=== PATIENT | female | born 1985 | race Caucasian/White ===

== ENCOUNTER 2019-10-04 13:21 | Inpatient (IN) ==
[2019-10-04] MEDS ORDERED: OXYTOCIN 30 UNITS/500 ML BAG IV PRN ×3 (14:57→19:56)
[2019-10-04] MEDS: LACTATED RINGER'S 1,000 ML IV PRN ×2 (15:14→16:12)
[2019-10-04] MEDS ORDERED: ePHEDrine sulfate 50 MG/ML AMP ONE (15:18)
[2019-10-04] MEDS ORDERED: BUPIVACAINE 0.25% 30 ML VIAL ONE (15:18)
[2019-10-04] MEDS ORDERED: fentaNYL 2MCG/ML ROPIV 1.25MG/ML 100 ML BAG EPI ONE (15:19)
[2019-10-04] MEDS ORDERED: fentaNYL citrate 100 MCG/2 ML VIAL ONE (15:19)
[2019-10-04 15:22] LABS: Hematocrit (blood only) 40.6 % (37-47); Hemoglobin 13.3 g/dL (12.0-16.0); Mean Corpuscular Hemoglobin 29.7 pg (25-34); Mean Corpuscular Volume 90.6 fL (80-100); Mean Platelet Volume 12.5 fL (7.4-10.4); Platelet Count 218 K/uL (130-400); RDW Coefficient of Variation 14.4 % (11.5-14.5); RDW Standard Deviation 47.1 fL (36.4-46.3); Red Blood Count 4.48 M/uL (4.2-5.4); White Blood Count 11.62 K/uL (4.8-10.8)
[2019-10-04 15:33] LABS: Mean Corpuscular Hgb Conc 32.8 g/dL (32-36)
--- NOTE | 2019-10-04 16:10 | Anesthesiology Consultation ---
Date of Service October 04, 2019 Assessment & Plan (1) Encounter for pre-operative examination: History Height/Weight Height: 5 ft 7 in Weight: 87.543 kg Allergies Allergy/AdvReac Type Severity Reaction Status Date / Time No Known Allergies Allergy Unverified 03/13/19 22:41 Medications Home Medications Medication Instructions Recorded Confirmed Last Taken vit-iron fum-folic ac 1 tab PO DAILY 10/04/19 10/04/19 10/03/19 10:00 [ Vitamin] Active Medications Generic Name Dose Route Start Last Admin Trade Name Freq PRN Reason Stop Dose Admin Lactated Ringer's 1,000 mls @ 125 mls/hr 10/04/19 14:57 10/04/19 15:14 Lr IV 10/06/19 14:56 999 mls/hr .Q8H PRN Administration L&D Protocol Protocol Past Medical History Medical History delivery indicated due to breech presentation (~02/18/07) Rheumatoid arthritis (~05/04/10) Past Surgical History Surgical History Hx successful (vaginal after ), currently Social History Smoking Status: Never smoker Hx Alcohol Use: No Hx Substance Use: No Physical Exam Vital Signs Last Vital Signs Temp 36.7 C 10/04/19 13:39 Pulse 66 10/04/19 15:54 Resp 20 10/04/19 13:39 BP 115/75 10/04/19 15:54 Testing Laboratory Results 10/04/19 15:10
[2019-10-04] MEDS ORDERED: ePHEDrine sulfate 50 MG/ML AMP IV PRN (16:59)
[2019-10-04] MEDS ORDERED: NALOXONE HCL 0.4 MG/1 ML VIAL/CARP IV PRN (16:59)
[2019-10-04] MEDS ORDERED: fentaNYL 2MCG/ML ROPIV 1.25MG/ML 100 ML BAG EPI PRN (16:59)
[2019-10-04] MEDS ORDERED: DiphenhydrAMINE HCL 50 MG/ML VIAL IV PRN (16:59)
[2019-10-04] MEDS ORDERED: NALOXONE HCL 1 MG in SODIUM CHLORIDE 0.9% 1000ML 1,000 ML IV PRN (16:59)
[2019-10-04] MEDS ORDERED: ONDANSETRON INJ 2 MG/ML 2 ML VIAL IV PRN (16:59)
[2019-10-04] MEDS ORDERED: METHYLERGONOVINE MALEATE 0.2 MG/ML AMP ONE (19:51)
[2019-10-04] MEDS ORDERED: OXYCODONE/ACETAMINOPHEN 5mg/325mg TAB PO PRN (19:56)
[2019-10-04] MEDS ORDERED: SUPERCREAM 0.870% 15 GM JAR EXT PRN (19:56)
[2019-10-04] MEDS ORDERED: bisacodyL 10 MG SUPP PR PRN (19:56)
[2019-10-04] MEDS ORDERED: BENZOCAINE 20% AER SPR 82.5 GM CAN EXT PRN (19:56)
[2019-10-04] MEDS ORDERED: HYDROCORTISONE ACETATE 25 MG SUPP PR PRN (19:56)
[2019-10-04] MEDS ORDERED: miSOPROStoL 200 MCG TAB PR ONE (19:56)
[2019-10-04] MEDS ORDERED: DIPHTHERIA/TETANUS/PERTUSSIS 0.5 ML SYR/VIAL IM ONE (19:56)
[2019-10-04] MEDS ORDERED: ACETAMINOPHEN W/CODEINE #3 1 TAB PO PRN (19:56)
[2019-10-04] MEDS ORDERED: ACETAMINOPHEN 325 MG TAB PO PRN (19:56)
[2019-10-04] MEDS ORDERED: METHYLERGONOVINE MALEATE 0.2 MG/ML AMP IM ONE (19:56)
[2019-10-04] MEDS: DOCUSATE SODIUM 100 MG CAP PO SCH (21:34)
--- NOTE | 2019-10-04 23:50 | Delivery Summary ---
DATE OF OPERATION: 10/04/2019 She was admitted in active labor at term. She is a 5, para 5, B positive, group B strep negative. She was having sporadic contractions at home. When she was admitted, she was 7-8 cm, head was about a -1, membranes intact. She requested epidural. She received epidural. Then we augmented her with IV Pitocin, ruptured her membranes at about 9 cm. Then she pushed the baby down. Once the baby's head came out, retracted, it was obviously a large baby. When I felt around the neck, there was a nuchal cord. I was able to reduce nuchal cord over the neck intact and then we tried to deliver the baby. We had an anterior shoulder dystocia. We immediately went to flexion of the thighs towards the chest, we used this maneuver first, then we used suprapubic pressure to dislodge the anterior shoulder, continued to exert a steady safe amount of traction. This did not work. I reached for the posterior shoulder. The 's face was looking towards maternal right thigh. I was able to get under the axilla and basically in a circular fashion I pulled the shoulder from about 6 o'clock to about 9 o'clock and as I did this, it started to come down. I went back to the anterior shoulder, tried to reduce that. It still did not reduce. Went back to the axilla, then rotated it even more to about 10 o'clock and then at this point both shoulders dislodged and the infant was born. was limp at . I stripped the cord, clamped, and handed off to the nurses. It resuscitated quite readily with oxygen and had a heart rate of over 100. Took cord blood. Then with IV Pitocin running, I removed the placenta intact. Inspection revealed a laceration of the right labia minora. We infiltrated with local and sewed it with a running 3-0 chromic. She had a history of hemorrhage with previous delivery, so in addition to the Pitocin we used IM Methergine and 800 mcg of rectal Cytotec. Following this, hemostasis was good. The time from the delivery of the head to the delivery of the body was 4 minutes. ESTIMATED BLOOD LOSS: 100 mL. Apgars deferred to the nurses. I attest to the content of the Intraoperative Record and any orders documented therein. Any exception s are noted below.
[2019-10-05] MEDS: IBUPROFEN 600 MG TAB PO PRN ×4 (02:12→19:22)
[2019-10-05 06:06] LABS: Hemoglobin 13.1 g/dL (12.0-16.0); Mean Corpuscular Hemoglobin 29.9 pg (25-34); Mean Corpuscular Hgb Conc 33.6 g/dL (32-36); Mean Platelet Volume 12.3 fL (7.4-10.4); Platelet Count 200 K/uL (130-400); RDW Coefficient of Variation 14.1 % (11.5-14.5); RDW Standard Deviation 45.6 fL (36.4-46.3); Red Blood Count 4.38 M/uL (4.2-5.4); White Blood Count 18.14 K/uL (4.8-10.8)
[2019-10-05] MEDS: PRENATAL VITAMIN 1 TAB PO SCH (08:41)
[2019-10-05] MEDS: DOCUSATE SODIUM 100 MG CAP PO SCH ×2 (08:41→20:34)
--- NOTE | 2019-10-05 10:46 | Obstetrical Progress Note ---
Date of Service October 05, 2019 Assessment & Plan Admission and Anticipated Discharge Date Admission Date: October 04, 2019 Physical Exam Physical Exam: abdomen soft and non tender no calf tenderness ambulating well vaginal bleeding scant hgb 13.1 Results & Data ([place]) Vital Signs (Past 12 Hours) Vital Signs Temp Pulse Resp BP Pulse Ox 10/05/19 07:17 37.1 C 64 18 122/74 96 10/05/19 02:24 36.7 C 88 18 130/72
[2019-10-05] MEDS ORDERED: ONDANSETRON INJ 2 MG/ML 2 ML VIAL IV PRN (13:39)
[2019-10-05] MEDS ORDERED: bisacodyL 5 MG TABEC PO SCH (20:00)
[2019-10-06] MEDS: IBUPROFEN 600 MG TAB PO PRN ×4 (00:20→16:31)
[2019-10-06 05:49] LABS: Hematocrit (blood only) 36.4 % (37-47); Hemoglobin 12.1 g/dL (12.0-16.0)
[2019-10-06] MEDS: DOCUSATE SODIUM 100 MG CAP PO SCH (07:32)
[2019-10-06] MEDS: PRENATAL VITAMIN 1 TAB PO SCH (07:32)
[2019-10-06 07:39] LABS: Basophils # (auto) 0.07 K/uL (0-0.2); Basophils % (auto) 0.6 %; Eosinophils # (auto) 0.34 K/uL (0-0.5); Eosinophils % (auto) 2.7 %; Immature Granulocytes # (auto) 0.05 K/uL (0.00-0.02); Immature Granulocytes % (auto) 0.4 %; Lymphocytes % (auto) 28.8 %; Mean Corpuscular Hemoglobin 28.8 pg (25-34); Monocytes # (auto) 1.01 K/uL (0.11-0.59); Monocytes % (auto) 8.1 %; Neutrophils # (auto) 7.44 K/uL (1.4-6.5); Neutrophils % (auto) 59.4 %; Platelet Count 206 K/uL (130-400); RDW Coefficient of Variation 14.5 % (11.5-14.5); RDW Standard Deviation 48.3 fL (36.4-46.3); White Blood Count 12.51 K/uL (4.8-10.8)
--- NOTE | 2019-10-06 08:57 | Obstetrical Progress Note ---
Date of Service October 06, 2019 Assessment & Plan Admission and Anticipated Discharge Date Admission Date: October 04, 2019 Subjective Patient is seen and examined. She feels well, no complaints other than hip and pubic bone pain Able to walk but pain increases Ambulating without dizziness Voiding without difficulty Tolerating regular diet with out N&V Bleeding is minimal No fever/ chills/ CP/ SOB/ N&V/ Leg pain Breast feeding without problems Vital Signs Temp Pulse Pulse Resp BP Pulse Ox 10/06/19 07:35 36.7 C 53 L 16 125/81 98 10/06/19 00:00 37.5 C 55 L 18 114/76 10/05/19 19:45 36.5 C 58 L 18 111/71 10/05/19 16:18 36.8 C 54 L 16 111/72 96 Lab Results 10/04/19 10/05/19 10/06/19 Range/Units 15:10 05:41 05:33 WBC 11.62 H 18.14 H 12.51 H (4.8-10.8) K/uL RBC 4.48 4.38 4.20 (4.2-5.4) M/uL Hgb 13.3 13.1 12.1 (12.0-16.0) g/dL Hct 40.6 39.0 36.4 L (37-47) % MCV 90.6 89.0 (80-100) fL MCH 29.7 29.9 28.8 (25-34) pg MCHC 32.8 33.6 (32-36) g/dL RDW Std Deviation 47.1 H 45.6 48.3 H (36.4-46.3) fL RDW Coeff of Berkley 14.4 14.1 14.5 (11.5-14.5) % Plt Count 218 200 206 (130-400) K/uL MPV 12.5 H 12.3 H 13.0 H (7.4-10.4) fL Immature Gran % (Auto) 0.4 % Neut % (Auto) 59.4 % Lymph % (Auto) 28.8 % [place] % (Auto) 8.1 % Eos % (Auto) 2.7 % Baso % (Auto) 0.6 % Neut # (Auto) 7.44 H (1.4-6.5) K/uL Lymph # (Auto) 3.60 H (1.2-3.4) K/uL [place] # (Auto) 1.01 H (0.11-0.59) K/uL Eos # (Auto) 0.34 (0-0.5) K/uL Baso # (Auto) 0.07 (0-0.2) K/uL Immature Gran # (Auto) 0.05 H (0.00-0.02) K/uL PE: General: Alert, orientedx3, NAD Abd: soft, NT, fundus firm, below Umbilicus Tenderness on palpation of middle of symphysis pubis Perineum intact, Lochia rubra minimal Ext; NT, no edema 2AP: 34 yo s/p , ppd# VSS Afebrile doing well Symptoms suggesting separation of symphysis pubis: plan PT referral Continue routine care All questions were answered D/C home , f/u in office Results & Data ([facility]) Vital Signs (Past 12 Hours) Vital Signs Temp Pulse Pulse Resp BP Pulse Ox 10/06/19 07:35 36.7 C 53 L 16 125/81 98 10/06/19 00:00 37.5 C 55 L 18 114/76
[2019-10-06 14:53] LABS: Mean Corpuscular Hgb Conc 33.2 g/dL (32-36); Mean Corpuscular Volume 91.2 fL (80-100)
== END 2019-10-06 19:23 | disposition home or self-care (01) | DRG 807 ==
LOC: OPB 13:21 → 4S1 13:22 → 4S2 22:22

== ENCOUNTER 2021-08-29 08:19 | Inpatient (IN) ==
--- NOTE | 2021-08-23 14:32 | History and Physical Report ---
DATE OF ADMISSION: 08/29/2021 The patient is scheduled for section at [facility] on 08/29/2021. HISTORY OF PRESENT ILLNESS: This is a 36-year-old , due date is 09/03/2021 making her 38 weeks and 3 days today. The patient's has been complicated by macrosomia and a history of should er dystocia as well as history of previous section. The patient was open for attempt at vag inal delivery; however, ultrasound done today showed estimated weight of 9 pounds [address] consultation with the patient, decision is made to perform a repeat section. course has been unremarkable except for history of macrosomia. LABORATORIES: Rubella immune, RPR nonreactive, HIV negative, HB surface antigen is negative. PAST MEDICAL HISTORY: History of rheumatoid arthritis. PAST SURGICAL HISTORY: Prior section. ALLERGIES: No known drug allergies. PHYSICAL EXAMINATION: GENERAL: A well-developed, well-nourished white female in no acute distress. VITAL SIGNS: In the office this morning, blood pressure is 116/68, pulse is 72. HEART: S1 and S2 regular rhythm and rate. LUNGS: Clear to auscultation bilaterally. ABDOMEN: Gravid. EXTREMITIES: No cyanosis, clubbing or edema. PELVIC: Exam is deferred. ASSESSMENT AND PLAN: A 36-year-old 6, para 5, prior section x1. macrosomia, estimated weight is 9 pounds and 3 ounces. The patient has agreed to undergo a repeat section for macrosomia. Consent will be obtained in the morning of surgery by the physician perform ing the surgery. Job ID: [id number]
--- NOTE | 2021-08-25 10:36 | Anesthesiology Consultation ---
Date of Service August 25, 2021 Assessment & Plan (1) Encounter for pre-operative examination: Chart Review Chart Review: entry level assistant manager initiated Hx of x 1 and x 4. Scheduled for current due to macrosomia. Per nursing assessment 08/25/21, pt denies any recent travel. No known Covid positive exposures or Covid related symptoms. No known Covid infection in the past 90 days. Pt is fully vaccinated for Covid. Preop Covid testing scheduled 08/26/21= will await results Labor Epidural 10/04/19= Done at L3-4 with 1 attempt. History Surgery Operation Date: 08/29/21 10:10 Proposed Procedures p Repeat Section in LD - Brett Stafford MD Height/Weight Height: 5 ft 7 in Weight: 97.069 kg Allergies Allergy/AdvReac Type Severity Reaction Status Date / Time No Known Allergies Allergy Verified 08/25/21 09:06 Medications Home Medications Medication Instructions Recorded Confirmed Last Taken vitamins-iron fumarate 27 1 tab PO DAILY 10/04/19 08/25/21 06/28/21 08:00 mg iron-folic acid 0.8 mg tablet ( Vitamin) docusate sodium 100 mg capsule 100 mg PO DAILY 08/25/21 08/25/21 Unknown (Colace) ferrous sulfate 325 mg (65 mg 325 mg PO DAILY 08/25/21 08/25/21 Unknown iron) tablet (iron) Past Medical History Medical History Anemia Fibromyalgia GERD (gastroesophageal reflux disease) DURING PREGANCY ONLY History of COVID-19 04/13/21>FEVER/BODY ACHES/CHILLS *RESOLVED Rheumatoid arthritis (~05/04/10) Shoulder dystocia during labor and delivery, delivered Past Family History Family History Other No family history of adverse response to anesthesia Past Surgical History Surgical History delivery indicated due to breech presentation (~02/18/07) X 1 H/O wisdom tooth extraction LOCAL ONLY Hx successful (vaginal after ), currently X 4 S/P fine needle aspiration RT KNEE "DRAINED" X 3 Social History Smoking Status: Never smoker Hx Alcohol Use: No Hx Substance Use: No substance use type: does not use
[~2021-08-29 08:19] MED LIST: CITRIC ACID/SODIUM CITRATE 15 ML UDC PO SCH; LACTATED RINGER'S 1,000 ML IV SCH; ceFAZolin 2,000 MG in SYRINGE 0 ML IV SCH
[2021-08-29 10:01] LABS: Basophils # (auto) 0.06 K/uL (0-0.2); Basophils % (auto) 0.5 %; Eosinophils # (auto) 0.26 K/uL (0-0.5); Eosinophils % (auto) 2.1 %; Hemoglobin 11.6 g/dL (12.0-16.0); Immature Granulocytes # (auto) 0.08 K/uL (0.00-0.02); Immature Granulocytes % (auto) 0.7 %; Lymphocytes # (auto) 2.58 K/uL (1.2-3.4); Lymphocytes % (auto) 21.3 %; Mean Corpuscular Hemoglobin 29.4 pg (25-34); Mean Corpuscular Hgb Conc 33.1 g/dL (32-36); Mean Corpuscular Volume 88.6 fL (80-100); Monocytes # (auto) 1.11 K/uL (0.11-0.59); Monocytes % (auto) 9.2 %; Neutrophils # (auto) 8.03 K/uL (1.4-6.5); Neutrophils % (auto) 66.2 %; Platelet Count 218 K/uL (130-400); RDW Coefficient of Variation 14.6 % (11.5-14.5); RDW Standard Deviation 47.7 fL (36.4-46.3); Red Blood Count 3.95 M/uL (4.2-5.4); White Blood Count 12.12 K/uL (4.8-10.8)
[2021-08-29] MEDS ORDERED: LACTATED RINGER'S 1,000 ML IV SCH ×2 (10:15→14:48)
[2021-08-29] MEDS ORDERED: SODIUM CHLORIDE 0.9% 250 ML IV PRN (10:20)
[2021-08-29] MEDS ORDERED: fentaNYL citrate 100 MCG/2 ML VIAL ONE (10:34)
[2021-08-29] MEDS ORDERED: ONDANSETRON INJ 2 MG/ML 2 ML VIAL ONE (10:34)
[2021-08-29] MEDS ORDERED: MoRPHine SULFATE PF 1 MG/ML 10 ML AMP/VIAL ONE (10:34)
[2021-08-29] MEDS ORDERED: OXYTOCIN 10 UNITS/ML 10ML VIAL ONE (10:34)
[2021-08-29] MEDS ORDERED: PHENYLEPHRINE 100MCG/ML 5ML SYR ONE (10:34)
--- NOTE | 2021-08-29 10:46 | History & Physical Bridge Note ---
Date of Service August 29, 2021 History & Physical Bridge Note I have examined the patient, reviewed the History & Physical and in the interval since the performance of the History & Physical I have noted the following changes of clinical significance: no changes noted
[2021-08-29] MEDS ORDERED: NALBUPHINE HCL INJ 10 MG/ML AMP IV PRN (12:46)
[2021-08-29] MEDS ORDERED: NALOXONE HCL 0.4 MG/1 ML VIAL/CARP IV PRN (12:46)
[2021-08-29] MEDS ORDERED: diphenhydrAMINE 50 MG/ML VIAL IV PRN ×2 (12:46→14:48)
[2021-08-29] MEDS ORDERED: LACTATED RINGER'S 500 ML IV PRN (12:46)
[2021-08-29] MEDS ORDERED: NALOXONE HCL 0.08 MG in SYRINGE 1.8 ML IV PRN (12:46)
[2021-08-29] MEDS ORDERED: NALOXONE HCL 1 MG in SODIUM CHLORIDE 0.9% 1000ML 1,000 ML IV PRN (12:46)
[2021-08-29] MEDS ORDERED: ONDANSETRON INJ 2 MG/ML 2 ML VIAL IV PRN ×2 (12:46→14:48)
[2021-08-29] MEDS ORDERED: ePHEDrine sulfate 50 MG/ML AMP IV PRN (12:46)
[2021-08-29] MEDS ORDERED: MoRPHine SULFATE PF 1 MG/ML 10 ML AMP/VIAL INT SPINAL ONE (12:46)
[2021-08-29] MEDS ORDERED: NO NARCOTICS OR SEDATIVES SCH (13:00)
[2021-08-29] MEDS ORDERED: DC INTRASPINAL MORPHINE SCH (13:00)
[2021-08-29] MEDS ORDERED: SODIUM CHLORIDE 0.9% 1000ML 1,000 ML IV SCH (13:00)
[2021-08-29] MEDS ORDERED: ePHEDrine sulfate 50 MG/ML SYR ONE (13:07)
--- NOTE | 2021-08-29 13:37 | Post Operative Brief Note ---
Immediate Post Op Note v1 Date of Surgery August 29, 2021 Pre & Post Diagnosis Operation Date: 08/29/21 10:10 Pre-Op Diagnosis: 39 weeks gestation, repeat section Post-Op Diagnosis: 39 weeks gestation, repeat section I identified the patient and participated in the time-out.: Yes Procedure Operation Date: 08/29/21 10:10 Actual Procedures p Repeat Section in LD - Brett Stafford MD Surgeon Brett Stafford MD Wet Milling Wheel Operator Dr. Ken Estimated Blood Loss 500 Findings Consistent with Post-Op Diagnosis live male Apgars 8/9 weight 11 lbs 2 oz. Fluids LR 1200 ml. Specimens placenta Drains John Catheter Anesthesia Type Spinal Complications none Disposition Accompanied Patient To Recovery: Yes Overlapping Procedure I was present for: the critical portions of procedure. I was immediately available: during the entire case. Back up surgeon: used during listed procedure.
[2021-08-29] MEDS: KETOROLAC 30 MG/ML VIAL IV PRN (14:24)
[2021-08-29] MEDS ORDERED: oxyCODONE/ACETAMINOPHEN 5mg/325mg TAB PO PRN (14:48)
[2021-08-29] MEDS ORDERED: MEPERIDINE HCL 50 MG/ML CARP IV PRN (14:48)
[2021-08-29] MEDS ORDERED: DIPHTHERIA/TETANUS/PERTUSSIS 0.5 ML SYR/VIAL IM ONE (14:48)
[2021-08-29] MEDS ORDERED: PROMETHAZINE HCL 25 MG in SODIUM CHLORIDE 0.9% 50 ML IV PRN (14:48)
[2021-08-29] MEDS ORDERED: BENZOCAINE 20% AER SPR 82.5 GM CAN EXT PRN (14:48)
[2021-08-29] MEDS ORDERED: OXYTOCIN 30 UNITS in LACTATED RINGER'S 1,000 ML IV SCH (14:48)
[2021-08-29] MEDS ORDERED: MAGNESIUM HYDROXIDE SUSP 30 ML UDC PO PRN (14:48)
[2021-08-29] MEDS ORDERED: SENNA 8.6 MG TAB PO PRN (14:48)
[2021-08-29] MEDS ORDERED: HYDROCORTISONE ACETATE 25 MG SUPP PR PRN (14:48)
[2021-08-29] MEDS ORDERED: diphenhydrAMINE Capsule 25 MG CAP PO PRN (14:48)
--- NOTE | 2021-08-29 14:54 | Anesthesiology Progress Note ---
Date of Service August 29, 2021 Anesthesia Post Procedure Vital Signs Vital Signs: Temp Pulse Pulse Resp BP BP Pulse Ox 08/29/21 14:51 66 90 08/29/21 14:49 66 133/79 96 08/29/21 14:44 64 97 08/29/21 14:39 69 129/77 99 08/29/21 14:34 65 96 08/29/21 14:30 36.4 C L 20 08/29/21 14:29 63 135/76 99 08/29/21 14:28 63 93 08/29/21 14:26 20 08/29/21 14:24 65 98 08/29/21 14:20 61 128/73 08/29/21 14:19 64 97 08/29/21 14:14 64 95 08/29/21 14:10 20 08/29/21 14:09 72 132/75 97 08/29/21 14:04 72 98 08/29/21 14:00 69 20 125/63 08/29/21 13:59 72 98 08/29/21 13:54 71 98 08/29/21 13:50 16 08/29/21 13:49 73 119/66 97 08/29/21 13:48 77 91 08/29/21 13:44 65 96 08/29/21 13:40 20 08/29/21 13:39 77 126/62 98 08/29/21 13:36 69 94 08/29/21 13:34 70 100 08/29/21 13:30 36.4 C L 74 74 20 128/62 128/62 100 08/29/21 13:29 74 98 08/29/21 11:35 36.7 C 20 08/29/21 11:34 82 119/71 08/29/21 10:08 36.5 C 77 20 122/71 08/29/21 08:36 36.5 C 77 20 122/71 Pain Intensity Abdomen: Pain Intensity: 6 Transfer of Care Handoff Completed per policy Notes Mental Status: alert / awake / arousable and participated in evaluation Patient Amnestic to Procedure: No Nausea / Vomiting: adequately controlled Pain: adequately controlled Airway Patency, RR, SpO2: stable & adequate BP & HR: stable & adequate Hydration State: stable & adequate Neuraxial Anesthesia: was administered and sensory block is resolving Anesthetic Complications: no major complications apparent and Pt Satisfied with anesthetic care
--- NOTE | 2021-08-29 16:00 | Operative Report (OR) ---
DATE OF SURGERY: 08/29/2021 PREOPERATIVE DIAGNOSES: Elective primary section for macrosomia, prior vaginal after section, declined with history of shoulder dystocia. POSTOPERATIVE DIAGNOSES: Elective primary section for macrosomia, prior vaginal after section, declined with history of shoulder dystocia. PROCEDURE: Repeat section, low segment transverse. SURGEON: Brett Stafford MD. MID LEVEL JAVA DEVELOPER: Dr. Ken. ANESTHESIA: Spinal. ESTIMATED BLOOD LOSS: 500 mL. TOTAL FLUIDS: 1200 mL. URINE OUTPUT: 100 mL. COMPLICATIONS: None. FINDINGS: Live male, Apgars 8 and 9. weight 11 pounds 2 ounces. CLINICAL HISTORY: The patient is a 36-year-old female, para 5-0-0-5, at 39 weeks and 2 days with a h istory of prior shoulder dystocia who then elected for a primary section for this due to a history of macrosomia and evidence of macrosomia with this as well. The patient w as given informed consent. Consents were signed. Antibiotics were given preop and a timeout was allen led prior to the start of procedure. DESCRIPTION OF PROCEDURE: Under satisfactory spinal anesthesia, patient was prepped and draped in th e usual sterile fashion. She was checked for adequate anesthesia level. A low Pfannenstiel incision carrying this down through a prior scar, entering into the abdominal layers, successive layers witho ut difficulty. Upon entering into the lower uterine segment, pickups with teeth and Metzenbaum sciss ors were then used to develop a bladder flap. This was sharply dissected down. A low segment transverse incision over the lower uterine segment was made. The incision was nicked a nd widened in the AP diameter. The fluid was noted to be light meconium stained. The infant was the n delivered from the vertex presentation with the aid of fundal pressure. After delivery of the head and the body and shoulders, there was a 1 minute cord delay and after the cord was clamped and cut, the Apgars were 8 and 9. weight was found to be 11 pounds 2 ounces. Cord blood was obtained. Placenta then delivered spontaneously and intact, submitted to pathology as a separate specimen. After the placenta was delivered, the uterus was then exteriorized. Ring forceps were then placed on both angles in the inferior margin and another ring was then used to dilate the cervix. A lap pad w as then used to curette any membranes and debris in the uterus. The uterus was then closed with a do uble layer closure with 0 Vicryl suture in a continuous interlocking fashion followed by a second imb ricating suture of 0 Vicryl suture. The content of the pelvic and abdominal cavity was then irrigate d to clear. The initial sponge, needle, and instrument counts were found to be correct. Both ovarie s and tubes were found to be within normal limits. The uterus was placed back into the normal anatom ical position. The muscle was then reapproximated with a 0 Vicryl suture in a [id number] fashion, fascia was re approximated from both ends using 0 Vicryl suture in a continuous fashion. Subcuticular space was th en irrigated. Bleeders cauterized. Subcuticular fat layer was closed with 3-0 plain suture and the skin was then reapproximated with 4-0 Monocryl suture. Steri-Strips and ABD dressing and Telfa were applied. Uterus was expressed of all clots and debris. Estimated blood loss was 500 mL. The patien t was then placed supine on a stretcher and taken to the recovery room in stable condition. Please note, Dr. Ken was present to assist with the case, to help with exposure, fundal pressure, c losure of the uterus and closure of the abdomen. Job ID: [id number]
[2021-08-29] MEDS: SIMETHICONE 80 MG CHEW PO SCH ×2 (17:58→20:42)
[2021-08-29] MEDS: DOCUSATE SODIUM 100 MG CAP PO SCH (20:42)
[2021-08-30] MEDS: KETOROLAC 30 MG/ML VIAL IV PRN (05:22)
[2021-08-30] MEDS ORDERED: CITRIC ACID/SODIUM CITRATE 15 ML UDC PO SCH (06:00)
[2021-08-30 06:34] LABS: Basophils # (auto) 0.05 K/uL (0-0.2); Basophils % (auto) 0.4 %; Eosinophils # (auto) 0.22 K/uL (0-0.5); Eosinophils % (auto) 1.6 %; Hematocrit (blood only) 34.5 % (37-47); Hemoglobin 11.1 g/dL (12.0-16.0); Immature Granulocytes # (auto) 0.07 K/uL (0.00-0.02); Immature Granulocytes % (auto) 0.5 %; Lymphocytes # (auto) 1.38 K/uL (1.2-3.4); Lymphocytes % (auto) 10.1 %; Mean Corpuscular Hemoglobin 28.5 pg (25-34); Mean Corpuscular Hgb Conc 32.2 g/dL (32-36); Mean Corpuscular Volume 88.5 fL (80-100); Mean Platelet Volume 12.6 fL (7.4-10.4); Monocytes # (auto) 1.01 K/uL (0.11-0.59); Monocytes % (auto) 7.4 %; Neutrophils # (auto) 10.88 K/uL (1.4-6.5); Platelet Count 216 K/uL (130-400); RDW Coefficient of Variation 14.4 % (11.5-14.5); RDW Standard Deviation 47.2 fL (36.4-46.3); White Blood Count 13.61 K/uL (4.8-10.8)
[2021-08-30] MEDS ORDERED: oxyCODONE/ACETAMINOPHEN 5mg/325mg TAB PO PRN (06:46)
[2021-08-30] MEDS ORDERED: PROMETHAZINE HCL 25 MG in SODIUM CHLORIDE 0.9% 50 ML IV PRN (06:46)
[2021-08-30] MEDS ORDERED: diphenhydrAMINE 50 MG/ML VIAL IV PRN (06:46)
[2021-08-30] MEDS ORDERED: MEPERIDINE HCL 50 MG/ML CARP IV PRN (06:46)
[2021-08-30] MEDS ORDERED: diphenhydrAMINE Capsule 25 MG CAP PO PRN (06:46)
[2021-08-30] MEDS ORDERED: ONDANSETRON INJ 2 MG/ML 2 ML VIAL IV PRN (06:46)
[2021-08-30] MEDS: FERROUS SULFATE 325 MG TAB PO SCH (08:00)
[2021-08-30] MEDS: DOCUSATE SODIUM 100 MG CAP PO SCH ×2 (08:00→20:17)
[2021-08-30] MEDS: SIMETHICONE 80 MG CHEW PO SCH ×4 (08:00→20:17)
[2021-08-30] MEDS: PRENATAL VITAMIN 1 TAB PO SCH (08:00)
[2021-08-30] MEDS ORDERED: NON-FORMULARY MEDICATION (Ferrous Sulfate [Iron] 325 mg (65 mg iron) Tablet) PO SCH (09:00)
[2021-08-30] MEDS ORDERED: NON-FORMULARY MEDICATION (Prenatal Vit-Iron Fum-Folic Ac [Prenatal Vitamin] 27 mg iron- 0. PO SCH (09:00)
[2021-08-30] MEDS ORDERED: DOCUSATE SODIUM 100 MG CAP PO SCH (09:00)
--- NOTE | 2021-08-30 09:41 | Obstetrical Progress Note ---
Date of Service August 30, 2021 Assessment & Plan Admission and Anticipated Discharge Date Admission Date: August 29, 2021 Subjective Patient is seen and examined. She feels well, no complaints. Pain is under control with oral meds. Ambulating without dizziness Voiding without difficulty Tolerating regular diet with out N&V Flatus NEG Bleeding is minimal No fever/ chills/ CP/ SOB/ N&V/ Leg pain Breast feeding without problems Vital Signs Temp Pulse Resp BP Pulse Ox 08/30/21 06:00 20 96 08/30/21 05:30 36.6 C 73 18 115/65 96 08/30/21 05:20 18 94 08/30/21 04:52 18 94 08/30/21 04:05 18 91 08/30/21 02:46 18 91 08/30/21 02:10 20 93 08/30/21 01:02 20 96 08/30/21 00:20 18 91 08/29/21 23:25 36.6 C 79 20 129/81 93 08/29/21 23:20 20 93 08/29/21 22:45 20 95 08/29/21 21:45 20 96 Lab Results 08/29/21 08/29/21 08/30/21 Range/Units 08:48 08:51 06:17 WBC 12.12 H 13.61 H (4.8-10.8) K/uL RBC 3.95 L 3.90 L (4.2-5.4) M/uL Hgb 11.6 L 11.1 L (12.0-16.0) g/dL Hct 35.0 L 34.5 L (37-47) % MCV 88.6 88.5 (80-100) fL MCH 29.4 28.5 (25-34) pg MCHC 33.1 32.2 (32-36) g/dL RDW Std Deviation 47.7 H 47.2 H (36.4-46.3) fL RDW Coeff of Berkley 14.6 H 14.4 (11.5-14.5) % Plt Count 218 216 (130-400) K/uL MPV 13.0 H 12.6 H (7.4-10.4) fL Immature Gran % (Auto) 0.7 0.5 % Neut % (Auto) 66.2 80.0 % Lymph % (Auto) 21.3 10.1 % [place] % (Auto) 9.2 7.4 % Eos % (Auto) 2.1 1.6 % Baso % (Auto) 0.5 0.4 % Neut # (Auto) 8.03 H 10.88 H (1.4-6.5) K/uL Lymph # (Auto) 2.58 1.38 (1.2-3.4) K/uL [place] # (Auto) 1.11 H 1.01 H (0.11-0.59) K/uL Eos # (Auto) 0.26 0.22 (0-0.5) K/uL Baso # (Auto) 0.06 0.05 (0-0.2) K/uL Immature Gran # (Auto) 0.08 H 0.07 H (0.00-0.02) K/uL Blood Type B Positive Antibody Screen NEGATIVE Crossmatch See Detail PE: General: Alert, orientedx3, NAD CVS: S1S2 RRR Lungs; CTAB Abd: soft, NT, ND, BS+, fundus firm, below Umbilicus Incision/ dressing: Clean, dry, intact Perineum intact, Lochia rubra minimal Ext; NT, no edema AP: 36 yo s/p RC Section, pod# 1 VSS Afebrile doing well Continue routine postop care Encourage ambulation, PO intake All questions were answered Results & Data ([facility]) Vital Signs (Past 12 Hours) Vital Signs Temp Pulse Resp BP Pulse Ox 08/30/21 06:00 20 96 08/30/21 05:30 36.6 C 73 18 115/65 96 08/30/21 05:20 18 94 08/30/21 04:52 18 94 08/30/21 04:05 18 91 08/30/21 02:46 18 91 08/30/21 02:10 20 93 08/30/21 01:02 20 96 08/30/21 00:20 18 91 08/29/21 23:25 36.6 C 79 20 129/81 93 08/29/21 23:20 20 93 08/29/21 22:45 20 95 08/29/21 21:45 20 96
[2021-08-30] MEDS: IBUPROFEN 600 MG TAB PO PRN ×2 (15:20→20:17)
[2021-08-30] MEDS ORDERED: bisacodyL 5 MG TABEC PO SCH (20:00)
[2021-08-31] MEDS: IBUPROFEN 600 MG TAB PO PRN ×4 (02:06→17:02)
[2021-08-31] MEDS: oxyCODONE/ACETAMINOPHEN 5mg/325mg TAB PO PRN ×2 (02:06→20:01)
[2021-08-31 06:48] LABS: Hematocrit (blood only) 35.6 % (37-47); Hemoglobin 11.3 g/dL (12.0-16.0)
[2021-08-31] MEDS: SIMETHICONE 80 MG CHEW PO SCH ×4 (07:23→20:02)
[2021-08-31] MEDS: PRENATAL VITAMIN 1 TAB PO SCH (07:23)
[2021-08-31] MEDS: FERROUS SULFATE 325 MG TAB PO SCH (07:23)
[2021-08-31] MEDS: DOCUSATE SODIUM 100 MG CAP PO SCH ×2 (07:23→20:02)
--- NOTE | 2021-08-31 09:07 | Obstetrical Progress Note ---
Date of Service August 31, 2021 Assessment & Plan (1) Status post delivery: POD #2 Pt doing well anticipate disch tomorrow Subjective Ambulation: ambulating normally Voiding: no voiding problems Passing Gas:: Yes Diet Tolerance:: clear liquids Lochia:: Small Feeding Type:: breast feeding Review of Systems All systems reviewed & are unremarkable except as noted in HPI & below Physical Exam Constitutional WD/WN, vitals as above well developed and well nourished Eyes PERRL, conjunctivae normal, anicteric sclerae ENMT external ear and nose normal, oropharynx normal Neck trachea midline, no thyromegaly Respiratory normal respiratory effort, lungs clear to auscultation Cardiovascular RRR, no murmur, no edema Chest (Breasts) normal inspection/palpation of breasts Gastrointestinal (Abdomen) normal bowel sounds, soft, nontender, no hepatosplenomegaly Musculoskeletal no cyanosis or clubbing, extremities motor strength 5/5 Skin no rashes, warm and dry + incision (Clean,dry and intact) Neurologic patellar DTR's 2+ bilat, sensation intact Psychiatric A+Ox3, euthymic affect Genitourinary normal external appearance Lymphatic no cervical or axillary lymphadenopathy Results & Data ([facility]) Vital Signs (Past 12 Hours) Vital Signs Temp Pulse Resp BP Pulse Ox 08/31/21 07:20 36.5 C 64 18 126/84 98 08/31/21 02:00 36.4 C L 56 L 18 134/87
[2021-08-31] MEDS: ACETAMINOPHEN 325 MG TAB PO PRN ×2 (10:10→15:47)
[2021-08-31] MEDS ORDERED: bisacodyL 10 MG SUPP PR PRN (13:32)
[2021-09-01] MEDS: IBUPROFEN 600 MG TAB PO PRN ×3 (00:16→11:01)
[2021-09-01] MEDS: oxyCODONE/ACETAMINOPHEN 5mg/325mg TAB PO PRN ×2 (06:54→11:01)
[2021-09-01] MEDS: FERROUS SULFATE 325 MG TAB PO SCH (08:34)
[2021-09-01] MEDS: PRENATAL VITAMIN 1 TAB PO SCH (08:34)
[2021-09-01] MEDS: DOCUSATE SODIUM 100 MG CAP PO SCH (08:34)
[2021-09-01] MEDS: SIMETHICONE 80 MG CHEW PO SCH (08:34)
--- NOTE | 2021-09-01 09:13 | Obstetrical Progress Note ---
Date of Service September 01, 2021 Assessment & Plan Admission and Anticipated Discharge Date Admission Date: August 29, 2021 Subjective Patient is seen and examined. She feels well, no complaints. Pain is under control with oral meds. Ambulating without dizziness Voiding without difficulty Tolerating regular diet with out N&V Flatus + BM none Bleeding is minimal No fever/ chills/ CP/ SOB/ N&V/ Leg pain Breast feeding without problems Vital Signs Temp Pulse Resp BP Pulse Ox 09/01/21 00:15 36.4 C L 73 16 130/80 97 08/31/21 19:57 36.7 C 75 16 145/81 H 93 08/31/21 15:47 37.2 C 64 18 129/84 97 Lab Results 08/29/21 08/29/21 08/30/21 Range/Units 08:48 08:51 06:17 WBC 12.12 H 13.61 H (4.8-10.8) K/uL RBC 3.95 L 3.90 L (4.2-5.4) M/uL Hgb 11.6 L 11.1 L (12.0-16.0) g/dL Hct 35.0 L 34.5 L (37-47) % MCV 88.6 88.5 (80-100) fL MCH 29.4 28.5 (25-34) pg MCHC 33.1 32.2 (32-36) g/dL RDW Std Deviation 47.7 H 47.2 H (36.4-46.3) fL RDW Coeff of Berkley 14.6 H 14.4 (11.5-14.5) % Plt Count 218 216 (130-400) K/uL MPV 13.0 H 12.6 H (7.4-10.4) fL Immature Gran % (Auto) 0.7 0.5 % Neut % (Auto) 66.2 80.0 % Lymph % (Auto) 21.3 10.1 % [place] % (Auto) 9.2 7.4 % Eos % (Auto) 2.1 1.6 % Baso % (Auto) 0.5 0.4 % Neut # (Auto) 8.03 H 10.88 H (1.4-6.5) K/uL Lymph # (Auto) 2.58 1.38 (1.2-3.4) K/uL [place] # (Auto) 1.11 H 1.01 H (0.11-0.59) K/uL Eos # (Auto) 0.26 0.22 (0-0.5) K/uL Baso # (Auto) 0.06 0.05 (0-0.2) K/uL Immature Gran # (Auto) 0.08 H 0.07 H (0.00-0.02) K/uL Blood Type B Positive Antibody Screen NEGATIVE Crossmatch See Detail 08/31/21 Range/Units 06:20 WBC (4.8-10.8) K/uL RBC (4.2-5.4) M/uL Hgb 11.3 L (12.0-16.0) g/dL Hct 35.6 L (37-47) % MCV (80-100) fL MCH (25-34) pg MCHC (32-36) g/dL RDW Std Deviation (36.4-46.3) fL RDW Coeff of Brekley (11.5-14.5) % Plt Count (130-400) K/uL MPV (7.4-10.4) fL Immature Gran % (Auto) % Neut % (Auto) % Lymph % (Auto) % [place] % (Auto) % Eos % (Auto) % Baso % (Auto) % Neut # (Auto) (1.4-6.5) K/uL Lymph # (Auto) (1.2-3.4) K/uL [place] # (Auto) (0.11-0.59) K/uL Eos # (Auto) (0-0.5) K/uL Baso # (Auto) (0-0.2) K/uL Immature Gran # (Auto) (0.00-0.02) K/uL Blood Type Antibody Screen Crossmatch PE: General: Alert, orientedx3, NAD CVS: S1S2 RRR Lungs; CTAB Abd: soft, NT, ND, BS+, fundus firm, below Umbilicus Incision: Clean, dry, intact Perineum intact, Lochia rubra minimal Ext; NT, 2+/2+ edema, Homans sing negative BL AP: 36 yo s/p RC Section, pod# 3 VSS Afebrile doing well Continue routine postop care Encourage ambulation, PO intake All questions were answered D/C home , f/u in office Discussed when to call Results & Data ([facility]) Vital Signs (Past 12 Hours) Vital Signs Temp Pulse Resp BP Pulse Ox 09/01/21 00:15 36.4 C L 73 16 130/80 97
[2021-09-01] MEDS ORDERED: MAGNESIUM HYDROXIDE SUSP 30 ML UDC PO ONE (09:14)
--- NOTE | 2021-09-09 11:46 | Discharge Summary (DS) ---
DATE OF DISCHARGE: 09/01/2021 REASON FOR ADMISSION AND HOSPITAL COURSE: The patient is a 36-year-old female, para 5-0-0-5 at 39 we eks and 2 days with a history of prior shoulder dystocia who elected for a primary section d ue to history of macrosomia and evidence of macrosomia with this baby and the patient was given infor med consent prior to the start of the procedure. Consents were signed. HOSPITAL COURSE: The patient underwent a section under spinal anesthesia, delivering a live female. The Apgars were 8 and 9. The weight was 11 pounds 2 ounces. Hospital course was unc omplicated. The patient was discharged home on 09/01/2021 in stable condition. Home going instructi ons were given. CONDITION ON DISCHARGE: Stable. Regular diet on discharge. Follow up will be in the office in one week. MEDICATIONS: Include Motrin and Percocet. Job ID: [id number]
== END 2021-09-01 11:40 | disposition home or self-care (01) | DRG 788 ==
LOC: 4S1 08:19 → EDSTATUS 10:10 → 4E2 16:23